=== PATIENT | female | born 1960 | race Caucasian/White ===

== ENCOUNTER 2016-09-09 20:49 | Emergency (ER) | payer OTHER ==
[~2016-09-09] VITALS: Ht 157.5 cm; Wt 49.3 kg
[~2016-09-09 20:49] MED LIST: CEFDINIR300 MG PO; MOTRIN600 MG PO; NORCO 5/3251 TABLET PO
[2016-09-09 21:49] LABS: HEMATOCRIT 37.6 % (36.0-46.0); MCH 30.9 PG (29.0-34.0); MCHC 35.4 G/DL (30.0-36.0); MCV 87.4 FL (83-99); MEAN PLAT.VOLUME 9.8 uM^3 (9.5-12.4); PLATELET COUNT 216 K/uL (156-360); RBC DIS.WIDTH-CV 12.4 % (11.8-14.6); RBC DIS.WIDTH-SD 38.8 % (39-53); WHITE BLOOD COUNT 9.9 K/uL (4.1-10.2)
[2016-09-09 21:59] LABS: CHLORIDE 107 mEq/L (99-109); POTASSIUM 3.3 mEq/L (3.7-5.4); SODIUM 138 mEq/L (136-147)
[2016-09-09 22:00] LABS: GLUCOSE 98 mg/dL (70-99)
[2016-09-09 22:01] LABS: ANION GAP 9 MEQ/L (2-14)
[2016-09-09 22:02] LABS: TOTAL BILIRUBIN 0.6 mg/dL (0.0-1.0)
[2016-09-09 22:03] LABS: ALKALINE PHOSPHATASE 62 IU/L (3-129); GFR ESTIMATE (CALCULATED) > 59 mL/min/
[2016-09-09 22:04] LABS: UREA NITROGEN (BUN) 25 mg/dL (9-23)
[2016-09-09 22:38] LABS: C-REACTIVE PROTEIN 1.5 MG/L (0-10)
[2016-09-09] MEDS ORDERED: MOTRIN800 MG PO (22:58)
[2016-09-09 23:17] VITALS: BP 134/93
[2016-09-10] MEDS ORDERED: ASCORBIC ACID500 M3 PO (16:59)
[2016-09-22] MEDS ORDERED: PROBIOTIC1 EAC1 PO (13:01)
== END 2016-09-09 23:19 | disposition home or self-care (01) ==
LOC: EME 20:49
PROVIDERS: Nurse Practitioner Family
DX: M71.521 Other bursitis, not elsewhere classified, right elbow (principal); R50.9 Fever, unspecified; R11.0 Nausea
CPT/HCPCS: 73080; 80053; 83605; 85027; 86140; 87040; 99281; 99285; J1885; J2405; J3010; J7030

== ENCOUNTER 2016-09-10 14:03 | Inpatient (IN) | payer OTHER ==
[~2016-09-10] VITALS: Ht 157.5 cm; Wt 55.3 kg
[~2016-09-10 14:03] MED LIST changes: +MOTRIN800 MG PO
[2016-09-10 15:54] LABS: EOSINOPHIL (%) 1.8 % (0-5); EOSINOPHIL COUNT 0.2 K/uL (0-0.3); HEMATOCRIT 37.1 % (36.0-46.0); IMMATURE GRANULOCYTE (%) 1.3 % (0.0-0.7); IMMATURE GRANULOCYTE COUNT 1.7 K/uL; LYMPHOCYTE COUNT 0.5 K/uL (1.0-2.8); MCH 30.5 PG (29.0-34.0); MCHC 34.5 G/DL (30.0-36.0); MCV 88.5 FL (83-99); MEAN PLAT.VOLUME 11.2 uM^3 (9.5-12.4); MONOCYTE (%) 6.6 % (3-12); MONOCYTE COUNT 0.9 K/uL (0-0.8); NEUTROPHIL (%) 86.1 % (45-76); NEUTROPHIL COUNT 11.3 K/uL (1.8-6.4); PLATELET COUNT 196 K/uL (156-360); RBC DIS.WIDTH-CV 12.7 % (11.8-14.6); RBC DIS.WIDTH-SD 40.4 % (39-53); RED BLOOD COUNT 4.19 M/uL (3.80-5.20)
[2016-09-10 15:57] LABS: CHLORIDE 106 mEq/L (99-109); POTASSIUM 3.8 mEq/L (3.7-5.4); SODIUM 139 mEq/L (136-147)
[2016-09-10 15:59] LABS: GLUCOSE 126 mg/dL (70-99)
[2016-09-10 16:01] LABS: ANION GAP 12 MEQ/L (2-14)
[2016-09-10 16:02] LABS: TOTAL BILIRUBIN 0.9 mg/dL (0.0-1.0)
[2016-09-10 16:03] LABS: ALKALINE PHOSPHATASE 45 IU/L (3-129); GFR ESTIMATE (CALCULATED) > 59 mL/min/
[2016-09-10 16:04] LABS: UREA NITROGEN (BUN) 22 mg/dL (9-23)
[2016-09-10 16:14] LABS: WHITE BLOOD COUNT 13.1 K/uL (4.1-10.2)
[2016-09-10] MEDS ORDERED: ASCORBIC ACID500 M3 PO (16:59)
[2016-09-10 19:50] VITALS: BP 123/77
[2016-09-10 23:42] VITALS: BP 99/69
[2016-09-11 03:27] VITALS: BP 106/63
[2016-09-11 04:58] LABS: HEMATOCRIT 33.2 % (36.0-46.0); MCH 30.4 PG (29.0-34.0); MCV 89.2 FL (83-99); MEAN PLAT.VOLUME 10.2 uM^3 (9.5-12.4); PLATELET COUNT 153 K/uL (156-360); RBC DIS.WIDTH-SD 40.8 % (39-53); RED BLOOD COUNT 3.72 M/uL (3.80-5.20); WHITE BLOOD COUNT 10.4 K/uL (4.1-10.2)
[2016-09-11 05:08] LABS: CHLORIDE 112 mEq/L (99-109); POTASSIUM 3.9 mEq/L (3.7-5.4); SODIUM 141 mEq/L (136-147)
[2016-09-11 05:09] LABS: GLUCOSE 109 mg/dL (70-99)
[2016-09-11 05:11] LABS: ANION GAP 7 MEQ/L (2-14)
[2016-09-11 05:13] LABS: GFR ESTIMATE (CALCULATED) > 59 mL/min/
[2016-09-11 05:14] LABS: UREA NITROGEN (BUN) 21 mg/dL (9-23)
[2016-09-11 06:22] LABS: EOSINOPHIL (%) 0 % (0-5); HEMATOLOGY COMMENT 1 REV; IMMATURE GRANULOCYTE (%) 3.1 % (0.0-0.7); IMMATURE GRANULOCYTE COUNT 3.2 K/uL; LYMPHOCYTE COUNT 0.7 K/uL (1.0-2.8); MONOCYTE (%) 4.8 % (3-12); MONOCYTE COUNT 0.5 K/uL (0-0.8); NEUTROPHIL (%) 85.5 % (45-76); NEUTROPHIL COUNT 8.9 K/uL (1.8-6.4); PLAT.SUFFICIENCY ADEQUATE
[2016-09-11 07:00] VITALS: BP 123/86
[2016-09-11 12:00] VITALS: BP 120/78
[2016-09-11 16:00] VITALS: BP 130/80
[2016-09-11 18:01] LABS: METH RESISTANT S AUREUS PCR NEGATIVE (NEGATIVE)
[2016-09-11 18:16] LABS: PROBE CHECK PASS; SPECIMEN PROCESSING CONTROL PASS
[2016-09-11 23:28] VITALS: BP 114/75
[2016-09-12 06:35] LABS: HEMATOCRIT 35.5 % (36.0-46.0); MCH 29.4 PG (29.0-34.0); MCHC 32.7 G/DL (30.0-36.0); MCV 89.9 FL (83-99); RBC DIS.WIDTH-CV 13.2 % (11.8-14.6); RBC DIS.WIDTH-SD 43.2 % (39-53); RED BLOOD COUNT 3.95 M/uL (3.80-5.20); WHITE BLOOD COUNT 12.5 K/uL (4.1-10.2)
[2016-09-12 08:00] VITALS: BP 150/85
[2016-09-12 08:07] LABS: MEAN PLAT.VOLUME 11.4 uM^3 (9.5-12.4); PLATELET COUNT 176 K/uL (156-360)
[2016-09-12 08:18] LABS: ANION GAP 10 MEQ/L (2-14); CHLORIDE 108 MEQ/L (99-109); GFR ESTIMATE (CALCULATED) > 59 mL/min/; MAGNESIUM 2.1 mg/dl (1.3-2.7); POTASSIUM 3.5 MEQ/L (3.7-5.4); SAMPLE HEMOLYSIS CHECK 0; SAMPLE ICTERIC CHECK 0; SAMPLE LIPEMIA CHECK 0; SODIUM 140 MEQ/L (136-147); UREA NITROGEN (BUN) 18 mg/dL (9-23)
[2016-09-12 08:26] LABS: GLUCOSE 77 mg/dL (70-99)
[2016-09-12 16:00] VITALS: BP 136/86
[2016-09-12 19:14] VITALS: BP 130/76
[2016-09-12 23:18] VITALS: BP 134/77
[2016-09-13 04:00] VITALS: BP 110/69
[2016-09-13 04:39] LABS: EOSINOPHIL (%) 0.6 % (0-5); EOSINOPHIL COUNT 0.1 K/uL (0-0.3); HEMATOCRIT 29.3 % (36.0-46.0); IMMATURE GRANULOCYTE (%) 0.6 % (0.0-0.7); IMMATURE GRANULOCYTE COUNT 0.6 K/uL; LYMPHOCYTE COUNT 0.6 K/uL (1.0-2.8); MCH 30.3 PG (29.0-34.0); MCHC 34.1 G/DL (30.0-36.0); MCV 88.8 FL (83-99); MEAN PLAT.VOLUME 10.6 uM^3 (9.5-12.4); MONOCYTE (%) 4.9 % (3-12); MONOCYTE COUNT 0.5 K/uL (0-0.8); NEUTROPHIL (%) 87.9 % (45-76); NEUTROPHIL COUNT 9.6 K/uL (1.8-6.4); PLATELET COUNT 188 K/uL (156-360); RBC DIS.WIDTH-CV 12.7 % (11.8-14.6); RBC DIS.WIDTH-SD 39.7 % (39-53); WHITE BLOOD COUNT 10.9 K/uL (4.1-10.2)
[2016-09-13 04:57] LABS: CHLORIDE 111 mEq/L (99-109); SODIUM 140 mEq/L (136-147)
[2016-09-13 04:58] LABS: GLUCOSE 90 mg/dL (70-99)
[2016-09-13 05:00] LABS: ANION GAP 8 MEQ/L (2-14)
[2016-09-13 05:02] LABS: GFR ESTIMATE (CALCULATED) > 59 mL/min/
[2016-09-13 05:03] LABS: UREA NITROGEN (BUN) 12 mg/dL (9-23)
[2016-09-13 07:56] VITALS: BP 128/82
[2016-09-13 16:27] VITALS: BP 134/82
[2016-09-13 23:42] VITALS: BP 132/74
[2016-09-14 05:05] LABS: HEMATOCRIT 28.4 % (36.0-46.0); MCH 30.2 PG (29.0-34.0); MCHC 34.5 G/DL (30.0-36.0); MCV 87.4 FL (83-99); MEAN PLAT.VOLUME 10.8 uM^3 (9.5-12.4); PLATELET COUNT 200 K/uL (156-360); RBC DIS.WIDTH-CV 12.7 % (11.8-14.6); RED BLOOD COUNT 3.25 M/uL (3.80-5.20)
[2016-09-14 05:11] LABS: CHLORIDE 114 mEq/L (99-109); POTASSIUM 3.3 mEq/L (3.7-5.4); SODIUM 142 mEq/L (136-147)
[2016-09-14 05:12] LABS: GLUCOSE 99 mg/dL (70-99)
[2016-09-14 05:14] LABS: ANION GAP 7 MEQ/L (2-14)
[2016-09-14 05:16] LABS: GFR ESTIMATE (CALCULATED) > 59 mL/min/
[2016-09-14 05:17] LABS: UREA NITROGEN (BUN) 9 mg/dL (9-23)
[2016-09-14 05:46] LABS: WHITE BLOOD COUNT 5.6 K/uL (4.1-10.2)
[2016-09-14 07:22] LABS: EOSINOPHIL (%) 1.8 % (0-5); EOSINOPHIL COUNT 0.1 K/uL (0-0.3); HEMATOLOGY COMMENT 1 SMEAR COMPATIBLE; IMMATURE GRANULOCYTE (%) 2.1 % (0.0-0.7); IMMATURE GRANULOCYTE COUNT 1.2 K/uL; LYMPHOCYTE COUNT 0.9 K/uL (1.0-2.8); MONOCYTE (%) 10.8 % (3-12); MONOCYTE COUNT 0.6 K/uL (0-0.8); NEUTROPHIL (%) 68.8 % (45-76); NEUTROPHIL COUNT 3.9 K/uL (1.8-6.4); PLAT.SUFFICIENCY ADEQUATE; USER ID TLW
[2016-09-14 07:25] VITALS: BP 156/83
[2016-09-14] MEDS ORDERED: ZYVOX600 MG PO (10:18)
[2016-09-22] MEDS ORDERED: PROBIOTIC1 EAC1 PO (13:01)
== END 2016-09-14 11:48 | disposition home or self-care (01) | DRG 558 ==
LOC: EME 14:03 → EDOF 18:03 → 2EASTP 18:03 → 3EAST 19:24 → 2EASTP 09-11 06:52
PROVIDERS: Emergency Medicine; Hospitalist; Internal Medicine; Internal Medicine Infectious Disease
DX: M70.21 Olecranon bursitis, right elbow (principal); Y93.K1 Activity, walking an animal; L03.113 Cellulitis of right upper limb; E87.6 Hypokalemia; E78.5 Hyperlipidemia, unspecified; M19.90 Unspecified osteoarthritis, unspecified site
CPT/HCPCS: 73080; 80048; 80053; 80202; 83605; 83735; 85025; 85027; 86140; 87040; 87641; 99281; 99285; J0690; J1644; J1885; J2270; J2405; J2765; J3010; J3370; J7030; Q0164

== ENCOUNTER 2016-09-26 13:51 | Day surgery (SDC) | payer OTHER ==
[~2016-09-26] VITALS: Ht 157.5 cm; Wt 49.0 kg
[~2016-09-26 13:51] MED LIST changes: +ASCORBIC ACID500 M3 PO; +PROBIOTIC1 EAC1 PO; +ZYVOX600 MG PO
[2016-09-26] MEDS ORDERED: VANCOMYCIN1 GM/150 M IV ×2 (14:38→14:39)
[2016-09-26 14:56] VITALS: BP 143/85
[2016-09-27 04:00] VITALS: BP 130/84
== END 2016-09-27 14:07 | disposition home or self-care (01) ==
LOC: SDC 13:51 → 2SOUTH 20:23
PROC: 0J9G0ZZ Drainage of Right Lower Arm Subcutaneous Tissue and Fascia, Open Approach (ICD-10-PCS; principal; 2016-09-26)
DX: L02.413 Cutaneous abscess of right upper limb (principal); Z85.42 Personal history of malignant neoplasm of other parts of uterus
CPT/HCPCS: 80202; 87070; 87075; 87205; G0378; J1170; J1885; J2405; J2765; J3010; J3370

== ENCOUNTER 2017-03-07 12:54 | Emergency (ER) | payer OTHER ==
[~2017-03-07] VITALS: Ht 157.5 cm; Wt 49.4 kg
[~2017-03-07 12:54] MED LIST changes: +VANCOMYCIN1 GM/150 M IV
[2017-03-07 13:41] VITALS: BP 165/101
== END 2017-03-07 13:42 | disposition home or self-care (01) ==
LOC: EME 12:54
PROC: 3E0234Z Introduction of Serum, Toxoid and Vaccine into Muscle, Percutaneous Approach (ICD-10-PCS; principal; 2017-03-07)
DX: S80.871A Other superficial bite, right lower leg, initial encounter (principal); W54.0XXA Bitten by dog, initial encounter; Z23 Encounter for immunization
CPT/HCPCS: 99281; 99283